=== PATIENT | female | born 1955 | race Caucasian/White ===

== ENCOUNTER → 2019-06-26 | Outpatient (CLI) | payer BC ==
--- NOTE | 2019-06-26 16:02 | Diagnostic Imaging Report ---
Thyroid ultrasound CPT code: 90949 History: Multinodular goiter Comparison: None Findings: The thyroid echotexture is heterogeneous. Vascularity is normal. The right lobe measures 6.5 x 3.2 x 4.0 cm. The left lobe measures 7.0 x 3.7 x 2.8 cm. The isthmus measures 2.0 cm. Nodules (measurements are AP, transverse, craniocaudal): Right Lobe: Interpolar predominantly solid hypoechoic well-circumscribed wider than tall 1.4 x 0.8 x 1.3 cm nodule without internal calcification. Inferior pole predominantly solid 4.4 x 3.1 x 3.8 cm hypoechoic well-circumscribed wider than tall nodule without internal calcification. Left Lobe: Heterogeneous echotexture without discrete nodule. Isthmus: Hypoechoic solid slightly lobulated wider than tall nodule measures 4.2 x 2.3 x 4.8 cm. Lymph Nodes: No cervical lymph nodes are identified. Parathyroids: Not visualized. IMPRESSION: 1. Right interpolar nodule is moderately suspicious. Recommend imaging followup at 1,2,3 and 5 years. 2. Right lower pole nodule is moderately suspicious (TI-RADS 4). Recommend FNA based on size (up to 4.4cm). 3. Isthmus nodule is moderately suspicious. Recommend FNA based on size (up to 4.8cm) ACR glossary of thyroid rads TI-RADS 1: No focal lesion. TI-RADS 2: Not suspicious. TI-RADS 3: Mildly suspicious (recommend FNA is greater than or equal to 2.5 cm; follow-up at 1, 3, and 5 years if greater than or equal to 1.5 cm) TI-RADS 4: Moderately Suspicious (recommend FNA is greater than or equal to 1.5 cm; follow-up at 1, 2, 3, and 5 years) TI-RADS 5: Highly suspicious (recommend FNA is greater than or equal to 10 mm) TI-RADS 6: Biopsy-proven malignancy Signed by: Lilly Joshua MD on 06/26/2019 3:58 PM
== END ==
LOC: US 12:15
PROVIDERS: ATTEND Otolaryngology
DX: E04.2 Nontoxic multinodular goiter (principal)
CPT/HCPCS: 76536

== ENCOUNTER → 2020-06-10 | Outpatient (CLI) | payer BC ==
--- NOTE | 2020-06-10 14:50 | Diagnostic Imaging Report ---
Thyroid ultrasound. History: Thyroid nodules. Comparison: 06/26/2019. Discussion: Transverse and longitudinal images of the thyroid were obtained demonstrating heterogeneous echogenicity of the thyroid. The right lobe measures 6.8 x 3.7 x 3.7 cm and the left measures 5.8 x 3.7 x 4.5 cm. Right: 3 hypoechoic nodules are present, the largest in the lower pole measuring 4.2 x 2.9 x 4.5 cm, previously measuring 4.4 x 3.1 x 3.8 cm. The other 2 measure 1.6 and 1.5 cm in maximal diameter. Left: 2 hypoechoic nodules are present, measuring 1.8 x 2.3 x 1.5 cm and 1.2 x 1.1 x 1.2 cm. Isthmus: A 3.2 x 2.5 x 3.2 cm hypoechoic solid nodule is present in the left isthmus, previously measuring 4.8 x 2.3 x 4.2 cm. IMPRESSION: Multinodular goiter, with stable size of dominant right nodule and decreased size of the isthmus nodule. Signed by: Renzo Montoya on 06/10/2020 2:46 PM
== END ==
LOC: US 13:16
PROVIDERS: ATTEND Otolaryngology
DX: E04.2 Nontoxic multinodular goiter (principal)
CPT/HCPCS: 76536

== ENCOUNTER → 2021-06-16 | Outpatient (CLI) | payer BC | LOC: US 07:26 | PROVIDERS: ATTEND Otolaryngology | DX: E04.2 Nontoxic multinodular goiter (principal) | CPT/HCPCS: 76536 ==

== ENCOUNTER → 2025-03-19 | Day surgery (SDC) | payer MEDICARE, OTHER ==
[2025-03-11 09:47] LABS: BASOPHILS % 0.7 % (0.0-1.0); EOSINOPHILS % 13.0 % (0.0-6.0); LYMPHOCYTES % 20.5 % (18.0-39.1); MONOCYTES % 9.8 % (4.4-11.3); NEUTROPHILS % 55.8 % (38.7-80.0); RED CELL DISTRIBUTION WIDTH 13.0 % (11.7-14.4)
[~2025-03-19] MED LIST: ACETAMINOPHEN 1000 MG/100 ML 100 ML IV ONE; CEFAZOLIN SODIUM 2 GM ONE; EPHEDRINE SULFATE INJ 50 MG/ML VIAL ONE; FAMOTIDINE 20 MG/2 ML VIAL IV ONE; FENTANYL CITRATE/PF 100MCG/2 ML INJ ONE; HYDROCODONE-AC473 M1; LACTATED RINGER'S 1,000 ML ONE; LIDOCAINE HCL 2% LOCAL INJ 5 ML SDV VIAL INJ ONE; MIDAZOLAM HCL 2 MG/2 ML VIAL ONE; NEURONTIN400 MG PO; OMEPRAZOLE40 MG PO; ONDANSETRON HCL INJ 2MG/ML 2ML 2 MG/ML VIAL ONE; PROPOFOL IV EMULSION 10 MG/ML 20 ML VIAL ONE; SEVOFLURANE INHAL SOLN 250 ML PEN BTL ONE; SUCRALFATE1 GM PO
[2025-03-19 13:20] VITALS: BP 137/79; PULSE 75; RESP 17; O2SAT 98
== END | disposition home or self-care (01) ==
LOC: OR 09:07
PROVIDERS: ATTEND Orthopaedic Surgery Adult Reconstructive Orthopaedic Surgery
DX: S83.242A Other tear of medial meniscus, current injury, left knee, initial encounter (principal); S83.282A Other tear of lateral meniscus, current injury, left knee, initial encounter; X58.XXXA Exposure to other specified factors, initial encounter; M67.52 Plica syndrome, left knee; M17.0 Bilateral primary osteoarthritis of knee; M76.892 Other specified enthesopathies of left lower limb, excluding foot; M54.9 Dorsalgia, unspecified; G89.29 Other chronic pain; E66.01 Morbid (severe) obesity due to excess calories; E66.813 Obesity, class 3; Z68.42 Body mass index [BMI] 45.0-49.9, adult; Z79.82 Long term (current) use of aspirin; Z98.84 Bariatric surgery status; Z79.891 Long term (current) use of opiate analgesic; Z88.6 Allergy status to analgesic agent; Z88.5 Allergy status to narcotic agent; Z01.810 Encounter for preprocedural cardiovascular examination; Z01.812 Encounter for preprocedural laboratory examination
CPT/HCPCS: 29880; 36415; 71046; 85025; 93005; J0131; J1308; J2003; J2250; J2405; J2704; J3010; J7121